=== PATIENT | female | born 1945 | race Caucasian/White ===

== ENCOUNTER → 2017-01-28 | Outpatient (CLI) | payer OTHER ==
[~2017-01-28] MED LIST: SYNTHROID0.1 MG/TAB PO; ZESTRIL 10MG10 MG PO
== END ==
LOC: MC.RAD 13:27
DX: Z12.31 Encounter for screening mammogram for malignant neoplasm of breast (principal); Z80.3 Family history of malignant neoplasm of breast

== ENCOUNTER → 2018-01-30 | Outpatient (CLI) | payer MEDICARE | LOC: MC.RAD 08:00 | DX: Z12.31 Encounter for screening mammogram for malignant neoplasm of breast (principal); N63.20 Unspecified lump in the left breast, unspecified quadrant ==

== ENCOUNTER → 2018-02-17 | Outpatient (CLI) | payer MEDICARE | LOC: MC.RAD 08:44 | DX: N63.20 Unspecified lump in the left breast, unspecified quadrant (principal); N60.02 Solitary cyst of left breast; R92.2 Inconclusive mammogram ==

== ENCOUNTER → 2018-02-18 | Outpatient (CLI) | payer MEDICARE | LOC: MC.RAD 08:00 | DX: N63.20 Unspecified lump in the left breast, unspecified quadrant (principal) ==

== ENCOUNTER → 2018-03-24 | Outpatient (CLI) | payer MEDICARE ==
[~2018-03-24] MED LIST changes: +GINKGO3 PO; +NATURAL E400 IU PO; +NORCO 325 MG-51 TAB PO; +SYNTHROID0.125 MG/T PO; +VITAMIN C500 MG PO; +[UNRECOGNIZED DRUG - OTHER] PO
== END ==
LOC: COL.RAD 09:51
DX: C50.812 Malignant neoplasm of overlapping sites of left female breast (principal)
CPT/HCPCS: A9541

== ENCOUNTER 2018-03-25 06:52 | Day surgery (SDC) | payer MEDICARE ==
[~2018-03-25] VITALS: Ht 175.3 cm; Wt 98.8 kg
[2018-03-25] VITALS (7 sets, daily range): BP systolic 114–139; BP diastolic 52–83; PULSE 65–78; TEMP 97.8–98
[~2018-03-25 06:52] MED LIST changes: -GINKGO3 PO; -NATURAL E400 IU PO; -NORCO 325 MG-51 TAB PO; -SYNTHROID0.125 MG/T PO; -VITAMIN C500 MG PO; -[UNRECOGNIZED DRUG - OTHER] PO
[2018-03-25] MEDS ORDERED: SYNTHROID0.125 MG/T PO (09:47)
[2018-03-25] MEDS ORDERED: [UNRECOGNIZED DRUG - OTHER] PO (10:26)
[2018-03-25] MEDS ORDERED: VITAMIN C500 MG PO (10:27)
[2018-03-25] MEDS ORDERED: NATURAL E400 IU PO (10:41)
[2018-03-25] MEDS ORDERED: GINKGO3 PO (10:42)
[2018-03-25] MEDS ORDERED: NORCO 325 MG-51 TAB PO (14:05)
== END 2018-03-25 16:03 | disposition home or self-care (01) ==
LOC: SDCO 06:52
DX: C50.112 Malignant neoplasm of central portion of left female breast (principal); Z17.0 Estrogen receptor positive status [ER+]; I10 Essential (primary) hypertension; Z80.1 Family history of malignant neoplasm of trachea, bronchus and lung; E03.9 Hypothyroidism, unspecified; G47.33 Obstructive sleep apnea (adult) (pediatric)
CPT/HCPCS: J0690; J1100; J1885; J2405; J2704; J2765; J3010

== ENCOUNTER → 2019-02-19 | Outpatient (CLI) | payer MEDICARE ==
[~2019-02-19] MED LIST changes: +GINKGO3 PO; +NATURAL E400 IU PO; +NORCO 325 MG-51 TAB PO; +SYNTHROID0.125 MG/T PO; +VITAMIN C500 MG PO; +[UNRECOGNIZED DRUG - OTHER] PO
== END ==
LOC: MC.RAD 09:44
DX: C50.112 Malignant neoplasm of central portion of left female breast (principal); Z17.0 Estrogen receptor positive status [ER+]; Z98.890 Other specified postprocedural states; Z92.3 Personal history of irradiation
CPT/HCPCS: G0279

== ENCOUNTER → 2020-05-11 | Outpatient (CLI) | payer MEDICARE | LOC: MC.RAD 14:01 | DX: Z12.31 Encounter for screening mammogram for malignant neoplasm of breast (principal); Z85.3 Personal history of malignant neoplasm of breast; Z98.890 Other specified postprocedural states; Z98.82 Breast implant status; Z92.3 Personal history of irradiation ==

== ENCOUNTER → 2021-05-12 | Outpatient (CLI) | payer MEDICARE | LOC: MC.RAD 10:24 | DX: Z12.31 Encounter for screening mammogram for malignant neoplasm of breast (principal); C50.112 Malignant neoplasm of central portion of left female breast; Z98.890 Other specified postprocedural states ==

== ENCOUNTER → 2022-05-14 | Outpatient (CLI) | payer MEDICARE | LOC: MC.RAD 09:45 | DX: Z12.31 Encounter for screening mammogram for malignant neoplasm of breast (principal); Z85.3 Personal history of malignant neoplasm of breast ==

== ENCOUNTER → 2022-07-26 | Outpatient (CLI) | payer MEDICARE | LOC: COL.RAD 11:51 | DX: R41.3 Other amnesia (principal) ==